=== PATIENT | female | born 1995 | race American Indian/Alaskan Native ===

== ENCOUNTER 2017-08-30 21:53 | Emergency (ER) | payer SELFPAY ==
[2017-08-30 22:46] VITALS: BP 120/79
== END 2017-08-31 10:16 | disposition left against medical advice (07) ==
LOC: ED 21:53
DX: R50.9 Fever, unspecified (principal); R51 Headache; Z53.21 Procedure and treatment not carried out due to patient leaving prior to being seen by health care provider